=== PATIENT | male | born 1935 | race Two or more races ===

== ENCOUNTER 2017-05-27 14:06 | Inpatient (IN) | payer MEDICARE, MEDICAID ==
[~2017-05-27] VITALS: Ht 157.5 cm; Wt 53.6 kg
--- NOTE | 2017-05-27 14:10 | NUR ---
[facility] CTR FOR ABD DISTENTION. SENT BY DR CAMPBELL TO GET A PARACENTESIS PROCEDURE. PATIENT A/OX 3. BREATHING EVEN AND UNLABORED. NO SOB. VITALS STABLE. SAFETY AND COMFORT MEASURES IN PLACE. AWAITING MD ORDERS.
--- NOTE | 2017-05-27 14:18 | NUR ---
NEW IV STARTED ON LAC, 20 G. BLOOD DRAWN AND SENT TO LAB.
[2017-05-27 14:24] LABS: BASOPHILS % (AUTO) 0.4 % (0.0-2.0); EOSINOPHILS % (AUTO) 0.7 % (0.0-6.0); HEMATOCRIT 36 % (39-51); HEMOGLOBIN 12.2 g/dL (13.5-17.5); LYMPHOCYTES # (AUTO) 0.6 /CMM (0.8-4.8); MEAN CORPUSCULAR HEMOGLOBIN 32 PG (26.0-33.0); MEAN CORPUSCULAR HGB CONC 34 g/dl (31.0-36.0); MEAN CORPUSCULAR VOLUME 92 fL (80-96); MONOCYTES # (AUTO) 0.5 /CMM (0.1-1.30); MONOCYTES % (AUTO) 8.3 % (2.0-12.0); NEUTROPHILS # (AUTO) 5.3 /CMM (1.8-8.9); NEUTROPHILS % (AUTO) 80.6 % (43.0-81.0); PLATELET COUNT (AUTO) 301 /CMM (150-450); RDW COEFFICIENT OF VARIATION 15.5 (11.5-15.0); RED BLOOD CELL COUNT(AUTO) 3.87 MIL/uL (4.5-6.0); WHITE BLOOD COUNT (AUTO) 6.4 K/uL (4.3-11.0)
[2017-05-27] MEDS ORDERED: ASCO500T9 PO (14:25)
[2017-05-27] MEDS ORDERED: ONDA4TAB5 PO (14:25)
[2017-05-27] MEDS ORDERED: FURO40TA5 PO (14:25)
[2017-05-27] MEDS ORDERED: ISOS30TA6 PO (14:25)
[2017-05-27] MEDS ORDERED: ENOX40DI SQ (14:25)
[2017-05-27] MEDS ORDERED: METF500T4 PO (14:25)
[2017-05-27] MEDS ORDERED: CARV6.252 PO (14:25)
[2017-05-27] MEDS ORDERED: PROP10TA10 PO (14:25)
[2017-05-27] MEDS ORDERED: FOLI1TAB16 PO (14:25)
[2017-05-27] MEDS ORDERED: ASPI-1169 PO (14:25)
[2017-05-27] MEDS ORDERED: MULT-213 PO (14:25)
[2017-05-27] MEDS ORDERED: TRAM50TA2 PO (14:25)
[2017-05-27] MEDS ORDERED: GLIP5TAB13 PO (14:25)
[2017-05-27] MEDS ORDERED: ACET-2605 PO (14:25)
[2017-05-27 14:34] LABS: CALCIUM, SERUM 8.2 mg/dL (8.5-10.1); CARBON DIOXIDE 26 mmol/L (21-32); CHLORIDE 99 mmol/L (98-107); CREATININE 1.4 mg/dL (0.6-1.3); GLUCOSE 198 mg/dL (74-106); POTASSIUM 3.9 mmol/L (3.5-5.1); SODIUM SERUM 131 mmol/L (136-145); UREA NITROGEN, BLOOD 45 mg/dL (7-18)
[2017-05-27 14:38] LABS: INR 1.13 (0.85-1.15)
[2017-05-27 14:40] LABS: ALANINE AMINOTRANSFERASE 14 U/L (12-78); ALKALINE PHOSPHATASE 89 U/L (46-116); ASPARTATE AMINOTRANSFERASE 27 U/L (15-37); BILIRUBIN,DIRECT 0.4 mg/dL (0.0-0.2); LIPASE 286 U/L (73-393); TOTAL PROTEIN, SERUM 7.4 g/dL (6.4-8.2)
--- NOTE | 2017-05-27 14:42 | NUR ---
AWAITING LABS IN ORDER TO PROCEED WITH PARACENTESIS
--- NOTE | 2017-05-27 14:54 | NUR ---
PER DEBORAH TIN FLOPPER PATIENT IS CURRENTLY TAKING LOVENOX. INFORMED ER LOVENOX MUST BE HELD FOR 12 HOURS PRIOR TO US GUIDED PARACENTESIS
--- NOTE | 2017-05-27 15:30 | NUR ---
PATIENT TAKEN TO CT VIA STRETCHER.
--- NOTE | 2017-05-27 16:28 | NUR ---
REPORT GIVEN TO SEAN ANDERSON FOR DIANA UPON ADMISSION.
[2017-05-27 17:00] VITALS: BP 94/53
[2017-05-27] MEDS ORDERED: ONDANSETRON HCL/PF 4 MG/2 ML VIAL IVP PRN (17:00)
[2017-05-27] MEDS ORDERED: MAGNESIUM HYDROXIDE 30 ML UDC PO PRN (17:00)
[2017-05-27] MEDS: CARVEDILOL 6.25 MG TABLET PO SCH (17:00)
[2017-05-27] MEDS ORDERED: HYDROCODONE/APAP 5/325MG 1 EACH TABLET PO PRN (17:00)
[2017-05-27] MEDS ORDERED: MAG HYDROX/AL HYDROX/SIMETH 30 ML UDC PO PRN (17:00)
[2017-05-27] MEDS ORDERED: ACETAMINOPHEN 325 MG TABLET PO PRN (17:00)
[2017-05-27] MEDS ORDERED: Z GUARD REMEDY 2 OZ OINT TP PRN (17:00)
--- NOTE | 2017-05-27 17:00 | NUR ---
television directorcane burner notes Admitted a 82 years old male patient who came in due to for paracentesis and complaint of abdominal pain. Patient is under the medical service of Elvis Burnette NP on site and seen the patient and ordered put it on patient's profile. Skin assessment done and pictures taken and filed in the chart. IV intact and patent. Kept patient clean and comfortable in bed, call light with in patient reach, will continue to monitor accordingly.
--- NOTE | 2017-05-27 17:01 | NUR ---
PATIENT TRANSPORTED TO [facility] VIA ACLS PROTOCOL. SEAN ANDERSON TO PROVIDE DIANA.
[2017-05-27] MEDS: ENOXAPARIN SODIUM 30 MG/0.3 ML DISP.SYRIN SQ SCH (17:12)
--- NOTE | 2017-05-27 19:10 | NUR ---
TELE/RN NOTES RECEIVED PT. LYING IN BED. AWAKE, ALERT AND ORIENTED X 2. BREATHING EVEN AND UNLABORED ON ROOM AIR. NO SOB, RESPIRATORY DISTRESS OR COMPLAINTS OF PAIN NOTED AT THIS TIME. PT. WITH EXTERNAL SENIOR C SOFTWARE ENGINEER PRESENT AND INTACT. CURRENT RHYTHM = SINUS RHYTHM HR 64. PT. WITH LEFT AC 20 GAUGE PERIPHERAL IV PRESENT, PATENT AND INTACT ADMINISTERING TO PT. NS @ 50 ML/HR. PER DAYSHIFT NURSE PT. WILL BE NPO AFTER MIDNIGHT PENDING US GUIDED PARACENTESIS. BED LOCKED AND IN LOWEST POSITION, SIDE RAILS UP X3, BED ALARM ON, CALL LIGHT WITHIN REACH, WILL CONTINUE TO MONITOR.
[2017-05-27] MEDS: IV NS 0.9% 1,000 ML IV PRN (19:11)
--- NOTE | 2017-05-27 19:16 | NUR ---
rn closing notes All needs provided, attended, and anticipated. Kept patient clean and comfortable in bed, call light with in patient reach, endorsed to next shift RN to continue care. Addendum: 05/27/17 at 1916 by SEAN MOORE tele patient on tele monitor SR heart rate of 85
[2017-05-27 20:20] VITALS: BP 99/69
[2017-05-27] MEDS: PROPRANOLOL HCL 10 MG TABLET PO SCH (21:00)
[2017-05-27 23:57] VITALS: BP 112/72
[2017-05-28] MEDS: PANTOPRAZOLE 40 MG VIAL IV SCH (01:20)
[2017-05-28 04:43] VITALS: BP 112/76
--- NOTE | 2017-05-28 07:05 | NUR ---
TELE/RN NOTES PT. IS LYING IN BED RESTING. BREATHING EVEN AND UNLABORED ON ROOM AIR. NO SOB, RESPIRATORY DISTRESS OR COMPLAINTS OF PAIN NOTED AT THIS TIME. PT. WITH EXTERNAL SOCIAL INSURANCE ANALYST PRESENT AND INTACT. CURRENT RHYTHM = SINUS RHYTHM WITH PAC'S HR 89. PT. WITH LEFT AC 20 GAUGE IV PRESENT, PATENT AND INTACT.PT. REFUSING IV FLUIDS AT THIS TIME. EDUCATE PT. ON IMPORTANCE OF IV HYDRATION. PT. STATED HE DOES NOT WANT IT AND WANTS TO BE LEFT ALONE. ALL PT. NEEDS MET. BED LOCKED AND IN LOWEST POSITION, SIDE RAILS UP X3, BED ALARM ON, CALL LIGHT WITHIN REACH, WILL ENDORSE TO DAYSHIFT NURSE FOR CONTINUITY OF CARE.
--- NOTE | 2017-05-28 08:30 | NUR ---
SPOKE TO [facility]TA[facility] FOR PT. PARACENTESIS CONSENT SIGNED.
[2017-05-28] MEDS: CARVEDILOL 6.25 MG TABLET PO SCH ×2 (09:00→17:00)
[2017-05-28] MEDS: glipiZIDE 5 MG TABLET PO SCH (09:00)
[2017-05-28] MEDS: ISOSORBIDE MONONITRATE (30MG) 30 MG TAB.SR.24H PO SCH (09:00)
[2017-05-28] MEDS: ASCORBIC ACID 500 MG TABLET PO SCH (09:00)
[2017-05-28] MEDS: PROPRANOLOL HCL 10 MG TABLET PO SCH ×2 (09:00→21:00)
[2017-05-28] MEDS: ASPIRIN 81 MG TAB.CHEW PO SCH (09:00)
[2017-05-28] MEDS: MULTIVIT, IRON, MIN NO. 8, FA 1 TAB PO SCH (09:00)
[2017-05-28] MEDS: FOLIC ACID 1 MG TABLET PO SCH (09:00)
--- NOTE | 2017-05-28 10:38 | NUR ---
PT. REFUSING PARACENTESIS,AM LABS,MEDS AND MONICA DOE INFORMED DR. WELCH.STATES HE WILL TALK TO PT.
--- NOTE | 2017-05-28 10:51 | NUR ---
WOUND CARE CONSULT: PT FOLLOWED BY SURGICAL TEAM. DEFER TO SURGICAL TEAM FOR WOUND/SKIN TREATMENT PLAN. DISCUSSED SKIN PROTECTION WITH NURSING STAFF. ALL SKIN PROTECTION MEASURES IN PLACE. PT ON JOSE ISOFLEX LOW AIRLOSS BED. PT IS UNCOOPERATIVE PER NURSING STAFF. MD IN AGREEMENT WITH PLAN OF CARE.
[2017-05-28 11:54] LABS: BASOPHILS % (AUTO) 0.3 % (0.0-2.0); EOSINOPHILS % (AUTO) 0.6 % (0.0-6.0); HEMATOCRIT 32 % (39-51); HEMOGLOBIN 11.1 g/dL (13.5-17.5); LYMPHOCYTES # (AUTO) 0.6 /CMM (0.8-4.8); LYMPHOCYTES % (AUTO) 10.3 % (20.0-44.0); MEAN CORPUSCULAR HEMOGLOBIN 32 PG (26.0-33.0); MEAN CORPUSCULAR HGB CONC 35 g/dl (31.0-36.0); MEAN CORPUSCULAR VOLUME 93 fL (80-96); MONOCYTES # (AUTO) 0.6 /CMM (0.1-1.30); NEUTROPHILS % (AUTO) 79.8 % (43.0-81.0); PLATELET COUNT (AUTO) 274 /CMM (150-450); RDW COEFFICIENT OF VARIATION 16.5 (11.5-15.0); RED BLOOD CELL COUNT(AUTO) 3.44 MIL/uL (4.5-6.0); WHITE BLOOD COUNT (AUTO) 6.3 K/uL (4.3-11.0)
[2017-05-28 12:00] VITALS: BP 96/69
[2017-05-28 12:12] LABS: ALANINE AMINOTRANSFERASE 16 U/L (12-78); ALKALINE PHOSPHATASE 83 U/L (46-116); ASPARTATE AMINOTRANSFERASE 34 U/L (15-37); BILIRUBIN,TOTAL 1.2 mg/dL (0.2-1.0); CALCIUM, SERUM 8.3 mg/dL (8.5-10.1); CARBON DIOXIDE 23 mmol/L (21-32); CHLORIDE 103 mmol/L (98-107); CREATININE 1.2 mg/dL (0.6-1.3); GLUCOSE 96 mg/dL (74-106); MAGNESIUM 1.7 mg/dL (1.8-2.4); PHOSPHORUS 2.5 mg/dL (2.5-4.9); POTASSIUM 3.5 mmol/L (3.5-5.1); SODIUM SERUM 136 mmol/L (136-145); UREA NITROGEN, BLOOD 40 mg/dL (7-18)
[2017-05-28 12:17] LABS: CHOLESTEROL 109 mg/dL (<200); HDL CHOLESTEROL 35 mg/dL (40-60); LDL 68 mg/dL (0-99); THYROID STIMULATING HORMONE 8.496 uIU/mL (0.358-3.74); TRIGLYCERIDES 79 mg/dL (30-150)
[2017-05-28 16:00] VITALS: BP 93/58
[2017-05-28] MEDS: HYDROGEL DRESSING 90 GM TUBE TP SCH ×2 (17:35→22:00)
[2017-05-28] MEDS: MUPIROCIN OINT 2% 22 GM TUBE SCH ×2 (17:35→21:00)
--- NOTE | 2017-05-28 17:46 | NUR ---
PT WENT ALONG WITH CT SCAN OF ABD. AND PARACENTESIS,BUT NOW REFUSING WOUND ASSESSMENT AND BACTROBAN.INSTRUCTED ON IMPORTANCE.NO MEASUREMENTS OF BACK AND SACRAL WDS. PT. REFUSING.
--- NOTE | 2017-05-28 18:00 | NUR ---
PARACENTESIS FLUID TAKEN TO LAB WITH LABELING.PT. 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
--- NOTE | 2017-05-28 19:30 | NUR ---
RN Initial Notes Received pt laying in bed with HOB elevated. A/o x2, afebrile. Respirations are even and unlabored, not in any acute distress noted. Denies any pain at this time. IV to LAC intact, no infiltration noted. Dressing kept clean and dry. Safety measures in place. Instructed pt to use call light when assistance is needed, call light is left within reach. Will continue to monitor throughout shift.
--- NOTE | 2017-05-28 19:40 | NUR ---
RN Notes IV fluids was disconnected. Informed the pt that IV fluids has been ordered and needs to be connected. Pt refused. Explained to the pt the benefits and risks of fluids, pt still noted with refusal. Honored pt's dignity and the right to refuse. Will continue to monitor for any changes.
[2017-05-28 20:00] VITALS: BP 103/68
[2017-05-28] MEDS: ENOXAPARIN SODIUM 30 MG/0.3 ML DISP.SYRIN SQ SCH (21:00)
--- NOTE | 2017-05-28 21:39 | NUR ---
RN Notes 2109 Explained to the pt re: his scheduled medications and treatments. Pt noted with refusal. Explained the risks and benefits x2, still noted with refusal. 2134 Explained to the pt again re: the importance of the scheduled medications and treatments: Inderal, Lovenox, bactroban and curasol gel. Pt stated "just leave me alone. I don't need anything." Provided comfort measures and stated to the pt that "we are here to help you get better and stronger." Pt still refused. Will continue to monitor pt throughout shift. Reminded pt to use call light when assistance is needed, call light is left within reach.
--- NOTE | 2017-05-28 21:47 | NUR ---
RN Notes Pt refused wound treatment to be done. Explained the need to change dressing. Pt stated, "I don't want it changed." Will continue to monitor dressing and note any significant changes. Addendum: 05/28/17 at 2150 by MALDONADO ANDRADE RN Amended: Links added.
[2017-05-29] VITALS: BP 117/70
[2017-05-29] MEDS: PANTOPRAZOLE 40 MG VIAL IV SCH ×2 (00:09→22:47)
[2017-05-29] MEDS: IV NS 0.9% 1,000 ML IV PRN (00:09)
--- NOTE | 2017-05-29 00:10 | NUR ---
RN Notes Pt was okay for IV fluids to be administered at NS 50ml/hr, as well as protonix. IV to LAC intact, no infiltration noted. Dressing kept clean and dry. Pt able to tolerate well.
--- NOTE | 2017-05-29 01:00 | NUR ---
RN Notes Attempted to collect urine specimen using a urinal. Pt stated he is not able to urinate at this time. Diaper is also dry. Will continue to monitor and try to collet urine. Pt made aware. Instructed pt to use call light when assistance is needed and if needed to urinate. Pt stated "ill try." Pt able to perform return demonstration of call light button.
[2017-05-29 04:00] VITALS: BP 98/61
--- NOTE | 2017-05-29 06:33 | NUR ---
RN Notes Attempted x2 to collect urine. Pt stated he cannot pee at the moment and brief is dry. Pt refuses for insertion of straight cath or rodriguez. Explained the need to collect urine sample. Per pt, "I will let you know when i need to pee." Bladder is soft and nondistended, denies any bladder discomfort upon palpation. Encouraged pt to drink fluids as tolerated, IV fluids running NS @50ml/hr. Reminded pt to use call light when assistance is needed and the need to urinate. Pt verbalized understanding.
--- NOTE | 2017-05-29 06:35 | NUR ---
RN Closing Notes Needs met and rendered. Remains a/o x2, remains afebrile. Respirations are even and unlabored, not in any acute distress noted. Educated pt on medications, with some confusion and needs reinforcement. IV to LAC intact and patent, no infiltration noted. Dressing kept clean and dry. Denies any pain, SOB, n/v. Assisted pt with EDUCATOR SENIOR CLINICAL to reposition throughout shift and offloaded bony prominences to prevent further skin injuries. Safety measures in place. Instructed pt to use call light when assistance is needed, call light is left within reach. Will endorse to next shift for continuity of care.
[2017-05-29 08:00] VITALS: BP 91/61
--- NOTE | 2017-05-29 08:00 | NUR ---
RN NOTES RECEIVED PATIENT IN THE BED. TELE SR-76, A/O X2/3, PATIENT HAS NO RESPIRATORY DISTRESS, REFUSED TO ANSWER QUESTION, IRRITABLE EASILY, NEEDY, V/S TAKEN AND FOLLOWED , IV LINE ON LEFT AC AREA INTACT INFUSING NS AT 50 ML/HR, PATIENT SELECTIVE WITH MEDICATION, MULTIPLE PROMOTES FOR MEDICATION INTACT, ASSIST TURN AND REPOSITION Q 2 HR, PATIENT USING URINAL, CALL LIGHT WITHIN TO REACH, PATIENT ON ISOLATION OF MRSA OF NARES, NEEDS ATTENDED A DN ANTICIPATED, CALL LIGHT WITHIN TO REACH, CONTINUED MONITORING.
[2017-05-29] MEDS: ISOSORBIDE MONONITRATE (30MG) 30 MG TAB.SR.24H PO SCH (09:00)
[2017-05-29] MEDS: PROPRANOLOL HCL 10 MG TABLET PO SCH ×2 (09:00→21:00)
[2017-05-29] MEDS: CARVEDILOL 6.25 MG TABLET PO SCH ×2 (09:00→17:00)
[2017-05-29] MEDS: MULTIVIT, IRON, MIN NO. 8, FA 1 TAB PO SCH (09:56)
[2017-05-29] MEDS: ASCORBIC ACID 500 MG TABLET PO SCH (09:56)
[2017-05-29] MEDS: FOLIC ACID 1 MG TABLET PO SCH (09:56)
[2017-05-29] MEDS: ASPIRIN 81 MG TAB.CHEW PO SCH (09:56)
[2017-05-29] MEDS: glipiZIDE 5 MG TABLET PO SCH (09:57)
[2017-05-29] MEDS: HYDROGEL DRESSING 90 GM TUBE TP SCH ×2 (09:58→21:16)
[2017-05-29] MEDS: MUPIROCIN OINT 2% 22 GM TUBE SCH ×2 (09:59→21:03)
--- NOTE | 2017-05-29 10:00 | NUR ---
RN NOTES BP -91/65, P- 76, HOLD BP MEDICATION , ANSELMO COY AWARE OF. CONTINUED MONITORING.
--- NOTE | 2017-05-29 12:00 | NUR ---
RN NOTES PATIENT RESTING IN THE BED AT HIS TIME, PATIENT CONTACT ISOLATION, PATIENT HAS NO C/O PAIN AT THIS TIME, NEEDS ATTENDED AND ANTICIPATED. CALL LIGHT WITHIN TO REACH,CONTINUED MONITORING.
[2017-05-29 15:31] LABS: APPEARANCE,URINE SL CLOUDY (CLEAR); BILIRUBIN,URINE NEGATIVE (NEGATIVE); BLOOD, URINE NEGATIVE Ery/uL (NEGATIVE); COLOR,URINE YELLOW (YELLOW); KETONES,URINE NEGATIVE (NEGATIVE); LEUKOCYTE ESTERASE ,URINE TRACE (NEGATIVE); NITRITE, URINE NEGATIVE (NEGATIVE); PH,URINE 5.5 (5.0-8.0); PROTEIN,URINE TRACE mg/dl (NEGATIVE); UGLUCOSE NEGATIVE (NEGATIVE)
[2017-05-29 15:33] LABS: BACTERIA,URINE Few /HPF (None Seen); RBC,URINE 0-2 /HPF (0-2); SQUAMOUS EPITHELIAL CELL,UR Few /HPF (None Seen)
[2017-05-29 16:00] VITALS: BP 104/74
--- NOTE | 2017-05-29 17:00 | NUR ---
RN NOTES V/S TAKEN BP 104/74, P-93, HELD BP MEDICATION, INFUSING NS AT 50 ML/HR, INTACT, PATIENT CALM AT THIS TIME, NO RESPIRATORY DISTRESS, NEEDS ATTENDED AND ANTICIPATED, PATIENT EATING DINNER AT THIS TIME, CALL LIGHT WITHIN TO [facility], NO C/O PAIN. CONTINUED MONITORING.
--- NOTE | 2017-05-29 18:40 | NUR ---
RN NOTES PATIENT STABLE, NO ACUTE RESPIRATORY DISTRESS AT THIS TIME, ASSIST TURN AND REPOSITION Q 2 HR. CALL LIGHT WITHIN TO REACH. ENDORSED ONCOMING NURSE FOR DIANA.
--- NOTE | 2017-05-29 19:32 | NUR ---
RN OPENING NOTES PATIENT IS IN BED, ALERT AND ORIENTED X2/3. VS STABLE. NO PAIN OR DISCOMFORT NOTED AT THIS TIME. RESPIRATIONS EVEN AND UNLABORED. NO SOB NOTED. PATIENT IS IRRITABLE TO ANSWER THE QUESTIONS. IV ACCESS ON LEFT AC AREA PATENT AND INTACT, INFUSING NS AT 50 ML/HR. PATIENT ON ISOLATION OF MRSA OF NARES. BED IN LOW AND LOCKED POSITION, SIDE RAILSX2. CALL LIGHT WITHIN EASY REACH. WILL CONTINUE TO MONITOR AND ASSESS DURING THE SHIFT.
[2017-05-29 20:00] VITALS: BP 108/59
[2017-05-29] MEDS: ENOXAPARIN SODIUM 30 MG/0.3 ML DISP.SYRIN SQ SCH (21:00)
--- NOTE | 2017-05-29 22:00 | NUR ---
RN NOTES PATIENT REFUSED TO TAKE INDERAL
--- NOTE | 2017-05-29 22:32 | NUR ---
RN NOTES PATIENT IS HAVING SURGICAL PROCEDURE. [facility] CALLED TO HOLD LOVENOX. LOVENOX HELD NOW.
--- NOTE | 2017-05-30 07:10 | NUR ---
RN OPENING NOTES RECEIVED PT. IN BED A&OX2-3, PERIODS OF FORGETFULNESS. BREATHING UNLABORED, AND EVENLY ON OXYGEN AT 3L/MIN VIA NASAL CANNULA. NO S/S OF ACUTE DISTRESS. IV FLUIDS AT BEDSIDE. BED IS IN LOWEST, AND LOCKED POSITION, 2 SIDE RAILS UP, AND INSTRUCTED PT. TO USE CALL LIGHT FOR ASSISTANCE. ALL NEEDS MET. WILL CONTINUE TO ASSESS AND MONITOR. Addendum: 05/30/17 at 0816 by MAYRA ISRAEL RN NOTE ABOVE IS FOR WRONG PATIENT.
--- NOTE | 2017-05-30 07:30 | NUR ---
RN OPENING NOTES RECEIVED PT. IN BED A&OX1, PATIENT OPENED EYES SPONTANEOUSLY TO HIS NAME. BREATHING UNLABORED, AND EVENLY ON ROOM AIR. NO S/S OF ACUTE DISTRESS. IV FLUIDS AT BEDSIDE RUNNING AT 50 ML/HR. BED IS IN LOWEST, AND LOCKED POSITION, 2 SIDE RAILS UP, AND CALL LIGHT IS WITHIN REACH. ALL NEEDS MET. WILL CONTINUE TO ASSESS AND MONITOR.
--- NOTE | 2017-05-30 07:30 | NUR ---
RN CLOSING NOTES PATIENT IS SLEEPING IN BED, ALERT AND ORIENTED X2/3. VS STABLE. NO PAIN OR DISCOMFORT NOTED AT THIS TIME. RESPIRATIONS EVEN AND UNLABORED. NO SOB NOTED. PATIENT IS IRRITABLE TO ANSWER THE QUESTIONS. IV ACCESS ON LEFT AC AREA PATENT AND INTACT, INFUSING NS AT 50 ML/HR. ON ISOLATION OF MRSA OF NARES. PATIENT IS NPO SINCE MIDNIGHT DUE TO SURGICAL PROCEDURE. CONSENT SINGED. BED IN LOW AND LOCKED POSITION, SIDE RAILSX2. CALL LIGHT WITHIN EASY REACH. WILL ENDORSE TO RN DAY SHIFT FOR DIANA.
--- NOTE | 2017-05-30 07:31 | NUR ---
RN NOTES PT. HAS BEEN NPO SINCE MIDNIGHT AWAITING FOR A WOUND DEBRIDEMENT PROCEDURE TODAY.
--- NOTE | 2017-05-30 08:00 | NUR ---
RN NOTES PT. REFUSED HAVING VITAL SIGNS TAKEN.
[2017-05-30] MEDS: MULTIVIT, IRON, MIN NO. 8, FA 1 TAB PO SCH (09:00)
[2017-05-30] MEDS: glipiZIDE 5 MG TABLET PO SCH (09:00)
[2017-05-30] MEDS: ISOSORBIDE MONONITRATE (30MG) 30 MG TAB.SR.24H PO SCH (09:00)
[2017-05-30] MEDS: PROPRANOLOL HCL 10 MG TABLET PO SCH ×2 (09:00→21:00)
[2017-05-30] MEDS: ASCORBIC ACID 500 MG TABLET PO SCH (09:00)
[2017-05-30] MEDS: CARVEDILOL 6.25 MG TABLET PO SCH ×2 (09:00→17:00)
[2017-05-30] MEDS: FOLIC ACID 1 MG TABLET PO SCH (09:00)
[2017-05-30 09:40] VITALS: BP 97/61
--- NOTE | 2017-05-30 10:33 | NUR ---
RN NOTES GLUCOTROL WAS HELD DUE TO PT. WAS NPO AFTER MIDNIGHT, MD AWARE MEDICATION WAS HELD. IMDUR, AND COREG WAS HELD DUE TO PT.'S DECREASED BLOOD PRESSURE, MD AWARE MEDICATIONS WERE HELD.
--- NOTE | 2017-05-30 10:36 | NUR ---
RN NOTES INDREL WAS HELD DUE TO PT.'S DECREASED BLOOD PRESSURE, IS AWARE.
[2017-05-30] MEDS: MUPIROCIN OINT 2% 22 GM TUBE SCH ×2 (10:48→21:35)
[2017-05-30] MEDS: HYDROGEL DRESSING 90 GM TUBE TP SCH ×2 (10:49→21:35)
[2017-05-30] MEDS: ASPIRIN 81 MG TAB.CHEW PO SCH (10:49)
--- NOTE | 2017-05-30 10:59 | NUR ---
RN NOTES PT. HAS POOR APPETITE, AND HAD BEEN REFUSING TO EAT BREAKFAST. PT. WAS OFFERED JELLO AND PUDDING, AND AGREED TO EATING JELLO.
[2017-05-30 16:00] VITALS: BP 101/71
[2017-05-30] MEDS: RIVAROXABAN 15 MG TABLET PO SCH (16:56)
--- NOTE | 2017-05-30 19:30 | NUR ---
RN OPEN NOTES RECEIVED PATIENT AWAKE IN BED. A/OX2. NO SIGNS OF DISTRESS OR DISCOMFORT. BREATHING EVEN AND UNLABORED. PATIENT ABD IS DISTENDED BUT SOFT AND NON-TENDER WITH ACTIVE BOWEL SOUNDS. IV ACCESS IN LAC WITH NS INFUSING, PATENT AND INTACT, NO SIGNS OF REDNESS OR INFILTRATION. BED IN LOW LOCKED POSITION WITH SIDE RAILS X2. CALL LIGHT WITHIN REACH. WILL CONTINUE TO MONITOR.
--- NOTE | 2017-05-30 19:45 | NUR ---
RN CLOSING NOTES PT. IS IN BED A&OX2, CONFUSED TO TIME. BREATHING UNLABORED, AND EVENLY ON ROOM AIR. NO S/S OF ACUTE DISTRESS. IV FLUIDS AT BEDSIDE RUNNING AT 50 ML/HR. BED IS IN LOWEST, AND LOCKED POSITION, 2 SIDE RAILS UP, AND CALL LIGHT IS WITHIN REACH. ALL NEEDS MET. WILL ENDORSE REPORT TO NURSE.
[2017-05-30] MEDS ORDERED: METOPROLOL TARTRATE 25 MG TABLET PO ONE (19:52)
[2017-05-30 20:00] VITALS: BP 111/73
[2017-05-30] MEDS ORDERED: NITROGLYCERIN 0.4 MG/TAB BOTTLE SL PRN (20:00)
[2017-05-30] MEDS ORDERED: MORPHINE SULFATE INJ 2 MG/ML DISP.SYRIN IV PRN (20:00)
--- NOTE | 2017-05-30 21:00 | NUR ---
RN NOTES PATIENT REFUSED INDERAL 10MG ADMINISTRATION X3. PATIENT EDUCATION REGARDING RISK AND BENEFITS REINFORCED. WILL CONTINUE TO MONITOR.
[2017-05-30 21:30] VITALS: BP 148/74
[2017-05-30] MEDS: PANTOPRAZOLE 40 MG VIAL IV SCH (23:30)
--- NOTE | 2017-05-30 23:30 | NUR ---
RN NOTES PATIENT REFUSED PROTONIX IV 40MG ADMINISTRATION X3. PATIENT STATES "I DON'T WANT ANYTHING".PATIENT EDUCATION REGARDING RISK AND BENEFITS REINFORCED. WILL CONTINUE TO MONITOR.
[2017-05-30] MEDS: IV NS 0.9% 1,000 ML IV PRN (23:56)
--- NOTE | 2017-05-31 06:43 | NUR ---
RN CLOSING NOTES PATIENT RESTING IN BED, EASILY AROUSABLE. A/OX2. NO SIGNS OF DISTRESS OR DISCOMFORT. BREATHING EVEN AND UNLABORED. IV ACCESS IN LAC WITH NS INFUSING, PATENT AND INTACT, NO SIGNS OF REDNESS OR INFILTRATION. ALL NEEDS MET. NO SIGNIFICANT CHANGES THROUGH THE NIGHT. REPOSITIONED Q2H. PATIENT KEPT CLEAN DRY AND COMFORTABLE. BED IN LOW LOCKED POSITION WITH SIDE RAILS X2. CALL LIGHT WITHIN REACH. WILL ENDORSE TO AM SHIFT FOR DIANA.
--- NOTE | 2017-05-31 07:30 | NUR ---
RN OPENING NOTES RECEIVED PT. IN BED A&OX2. NO S/S OF ACUTE DISTRESS. BREATHING EVEN AND UNLABORED ON ROOM AIR. IV FLUIDS RUNNING AT 50 ML/HR. BED IS IN LOW LOCKED POSITION WITH SIDE RAILS UP X2. CALL LIGHT WITHIN REACH. WILL CONTINUE TO ASSESS AND MONITOR.
[2017-05-31 08:00] VITALS: BP 119/82
--- NOTE | 2017-05-31 08:00 | NUR ---
RN NOTES PT. REFUSED GETTING LABS DRAWN. EXPLAINED TO PT. THE REASON FOR HIS LABS BEING DRAWN TODAY, AND PT. CONTINUED TO REFUSE. WAS NOTIFIED ABOUT PT. REFUSING HIS BLOOD BEING DRAWN FOR TODAY'S LAB ORDERS.
[2017-05-31] MEDS: MULTIVIT, IRON, MIN NO. 8, FA 1 TAB PO SCH (09:00)
[2017-05-31] MEDS: MUPIROCIN OINT 2% 22 GM TUBE SCH ×2 (09:00→21:35)
[2017-05-31] MEDS: ISOSORBIDE MONONITRATE (30MG) 30 MG TAB.SR.24H PO SCH (09:00)
[2017-05-31] MEDS: PROPRANOLOL HCL 10 MG TABLET PO SCH ×2 (09:00→21:36)
[2017-05-31] MEDS: glipiZIDE 5 MG TABLET PO SCH (09:00)
[2017-05-31] MEDS: ASCORBIC ACID 500 MG TABLET PO SCH (09:00)
[2017-05-31] MEDS: ASPIRIN 81 MG TAB.CHEW PO SCH (09:00)
[2017-05-31] MEDS: FOLIC ACID 1 MG TABLET PO SCH (09:00)
[2017-05-31] MEDS: CARVEDILOL 6.25 MG TABLET PO SCH ×2 (09:00→17:00)
[2017-05-31] MEDS: LEVOTHYROXINE SODIUM 50 MCG TABLET PO SCH (09:30)
[2017-05-31] MEDS: HYDROGEL DRESSING 90 GM TUBE TP SCH ×2 (10:00→21:35)
[2017-05-31] MEDS: RIVAROXABAN 15 MG TABLET PO SCH ×2 (10:03→17:00)
[2017-05-31 16:00] VITALS: BP 98/69
--- NOTE | 2017-05-31 16:30 | NUR ---
RN NOTES PT. WAS PLACED ON A [employer] MATTRESS. WOUND CARE TREATMENT PERFORMED PER RECOMMENDATIONS. PT. TOLERATED PROCEDURE WELL.
--- NOTE | 2017-05-31 19:30 | NUR ---
RN CLOSING NOTES PT. IN BED A&OX2-3. NO S/S OF ACUTE DISTRESS. BREATHING EVEN AND UNLABORED ON ROOM AIR. IV FLUIDS RUNNING AT 50 ML/HR. PT. HAD POOR DIET INTAKE THROUGHOUT THE DAY. PT. WAS NON COMPLAINT WITH MEDICATION REGIMEN, AND MD IS AWARE. PT. RECEIVED WOUND CARE TREATMENT AT BEDSIDE, AND TOLERATED PROCEDURE WELL. BED IS IN LOW LOCKED POSITION WITH SIDE RAILS UP X2. CALL LIGHT WITHIN REACH. WILL ENDORSE REPORT TO NURSE.
--- NOTE | 2017-05-31 19:41 | NUR ---
RN INITIAL NOTES RECEIVED PT LAYING IN BED WITH HOB ELEVATED. AWAKE AND RESPONSIVE, RESPIRATIONS ARE EVEN AND UNLABORED, NOT IN ANY ACUTE DISTRESS NOTED. NO C/O SOB, CHEST PAIN, N/V. IV TO LAC INTACT, PATENT. DRESSING KEPT CLEAN AND DRY. DENIES ANY PAIN AT THIS TIME. SAFETY MEASURES IN PLACE. INSTRUCTED PT TO USE CALL LIGHT WHEN ASSISTANCE IS NEEDED, CALL LIGHT IS LEFT WITHIN REACH. WILL CONTINUE TO MONITOR THROUGHOUT SHIFT.
[2017-05-31 20:00] VITALS: BP 117/73
[2017-06-01] MEDS: PANTOPRAZOLE 40 MG VIAL IV SCH (00:38)
[2017-06-01] MEDS: IV NS 0.9% 1,000 ML IV PRN ×2 (00:38→20:57)
--- NOTE | 2017-06-01 01:34 | NUR ---
RN NOTES BLADDER SCAN DONE W/ RESULTS OF >999CC RETAINED. DR. BOSS MADE AWARE WITH ORDER TO INSERT CAUDE CATHETER.
--- NOTE | 2017-06-01 04:30 | NUR ---
RN NOTES BLADDER NOTED TO BE DISTENDED. CAUDE CATHETER INSERTED BY ER NURSE WITH CHARGE NURSE AT BEDSIDE. PT TOLERATED PROCEDURE WELL. URINE NOTED TO BE DARK YELLOW/RAYSA COLORED. OUTPUT AT THIS TIME IS 500CC. WILL CONTINUE TO MONITOR TOTAL OUTPUT.
--- NOTE | 2017-06-01 06:35 | NUR ---
RN CLOSING NOTES ALL DUE MEDS GIVEN, NEEDS MET AND ANTICIPATED. AWAKE AND RESPONSIVE. AFEBRILE, RESPIRATIONS ARE EVEN AND AND UNLABORED, NOT IN ANY ACUTE DISTRESS NOTED. DENIES ANY SOB, N/V, CHEST PAIN. TOTAL OUTPUT AT END OF SHIFT 450CC, RAYSA COLORED URINE. BLADDER STILL NOTED TO BE DISTENDED. IV TO LAC INTACT, NO INFILTRATION NOTED. DRESSING KEPT CLEAN AND DRY. SAFETY MEASURES IN PLACE. REPOSITIONED PT Q2H AND OFFLOADED BILATERAL HEELS AND BONY PROMINENCES. INSTRUCTED PT TO USE CALL LIGHT WHEN ASSISTANCE IS NEEDED, CALL LIGHT IS LEFT WITHIN REACH. WILL ENDORSE TO NEXT SHIFT FOR CONTINUITY OF CARE.
[2017-06-01] MEDS: LEVOTHYROXINE SODIUM 50 MCG TABLET PO SCH (07:30)
--- NOTE | 2017-06-01 07:30 | NUR ---
MS RN OPENING NOTES RECEIVED PATIENT IN STABLE CONDITION. PATIENT IS ALERT AND ORIENTED. IN NO APPARENT DISTRESS. BEDSIDE RAILS ARE UPX2. BED IS LOCKED AND LOWERED. CALL LIGHT IS WITHIN REACH. WILL CONTINUE TO MONITOR. Addendum: 06/01/17 at 0749 by JOSE MEJÍA RN MS RN OPENING NOTES RECEIVED PATIENT IN STABLE CONDITION. IN NO APPARENT DISTRESS. BEDSIDE RAILS ARE UPX2. BED IS LOCKED AND LOWERED. CALL LIGHT IS WITHIN REACH. WILL CONTINUE TO MONITOR.
[2017-06-01 08:00] VITALS: BP 113/69
[2017-06-01] MEDS: BOOST PLUS FOOD-CHOCLATE 237 ML BOX PO SCH ×2 (08:00→16:21)
--- NOTE | 2017-06-01 08:30 | NUR ---
PATIENT REFUSED ALL MORNING MEDICATION INCLUDING BLOOD PRESSURE MEDICATION, VITAMINS, THYROID, BACTROBAN, XARELTO. RISKS AND BENEFITS OF MEDICATION ADHERENCE WERE EXPLAINED TO THE PATIENT. PATIENT CONTINUES TO REFUSE SAYS "I AM DONE TALKING ABOUT IT." PATIENT STATES "I AM GOING TO SLEEP, I JUST WANT MY FOOD AND SODA THAT IS ALL."
[2017-06-01] MEDS: MUPIROCIN OINT 2% 22 GM TUBE SCH ×2 (08:37→20:56)
[2017-06-01] MEDS: glipiZIDE 5 MG TABLET PO SCH (08:37)
[2017-06-01] MEDS: CARVEDILOL 6.25 MG TABLET PO SCH ×2 (08:37→16:24)
[2017-06-01] MEDS: ASPIRIN 81 MG TAB.CHEW PO SCH (08:37)
[2017-06-01] MEDS: ISOSORBIDE MONONITRATE (30MG) 30 MG TAB.SR.24H PO SCH (08:37)
[2017-06-01] MEDS: FOLIC ACID 1 MG TABLET PO SCH (08:37)
[2017-06-01] MEDS: ASCORBIC ACID 500 MG TABLET PO SCH (08:38)
[2017-06-01] MEDS: PROPRANOLOL HCL 10 MG TABLET PO SCH ×2 (08:38→20:56)
[2017-06-01] MEDS: MULTIVIT, IRON, MIN NO. 8, FA 1 TAB PO SCH (08:38)
[2017-06-01] MEDS: RIVAROXABAN 15 MG TABLET PO SCH ×2 (08:38→16:24)
[2017-06-01] MEDS: HYDROGEL DRESSING 90 GM TUBE TP SCH ×2 (09:39→21:00)
[2017-06-01 16:00] VITALS: BP 110/64
--- NOTE | 2017-06-01 18:45 | NUR ---
MS RN CLOSING NOTES PATIENT IS ALERT AND ORIENTED AND RESTING IN BED IN NO APPARENT DISTRESS. BEDSIDE RAILS ARE UPX2. BED IS LOCKED AND LOWERED. CALL LIGHT IS WITHIN REACH. ALL NEEDS WERE MET. IV LINE IS PATENT AND INTACT. WILL ENDORSE CARE TO MASONRY INSPECTOR NURSE FOR DIANA.
--- NOTE | 2017-06-01 19:45 | NUR ---
RN INITIAL NOTES RECEIVED PT LAYING IN BED WITH HOB ELEVATED. AWAKE AND RESPONSIVE, RESPIRATIONS ARE EVEN AND UNLABORED, NOT IN ANY ACUTE DISTRESS NOTED. DENIES ANY CHEST PAIN, N/V, SOB. PERIPHERAL IV TO LAC INTACT, PATENT. DRESSING KEPT CLEAN AND DRY. NO INFILTRATION NOTED. SAFETY MEASURES IN PLACE. INSTRUCTED PT TO USE CALL LIGHT WHEN ASSISTANCE IS NEEDED, CALL LIGHT IS LEFT WITHIN REACH. WILL CONTINUE TO MONITOR THROUGHOUT SHIFT.
[2017-06-01 20:00] VITALS: BP 108/74
[2017-06-02] MEDS: PANTOPRAZOLE 40 MG VIAL IV SCH (00:16)
--- NOTE | 2017-06-02 06:00 | NUR ---
RN NOTES PT REFUSED AM LABS. EXPLAINED TO THE PT IMPORTANCE OF THE LAB DRAW. STILL NOTED WITH REFUSAL. WILL CONTINUE TO MONITOR.
--- NOTE | 2017-06-02 06:28 | NUR ---
RN CLOSING NOTE ALL DUE MEDS GIVEN, NEEDS MET AND ANTICIPATED. PT WAS COMPLIANT WITH MEDICATIONS AND DRESSING CHANGES. AWAKE AND RESPONSIVE. REMAINS AFEBRILE, RESPIRATIONS ARE EVEN AND AND UNLABORED, NOT IN ANY ACUTE DISTRESS NOTED. DENIES ANY SOB, N/V, CHEST PAIN. IV TO LAC INTACT, NO INFILTRATION NOTED. DRESSING KEPT CLEAN AND DRY. SAFETY MEASURES IN PLACE. REPOSITIONED PT Q2H AND OFFLOADED BILATERAL HEELS AND BONY PROMINENCES. INSTRUCTED PT TO USE CALL LIGHT WHEN ASSISTANCE IS NEEDED, CALL LIGHT IS LEFT WITHIN REACH. WILL ENDORSE TO NEXT SHIFT FOR CONTINUITY OF CARE.
--- NOTE | 2017-06-02 07:50 | NUR ---
m/s truck driving: notes pt pulled his iv out, bleeding able to stop by putting pressure with gauze. pt refused iv insertion when offered, stated, "i don't want it."
[2017-06-02 08:00] VITALS: BP 121/54
--- NOTE | 2017-06-02 08:00 | NUR ---
m/s blindstitch machine operator: initial assessment received pt in bed awake, a/ox2-3, but doesn't want to bothered at all period as stated. pt refused physical assessment including body check assessment. pt refused to eat his breakfast at this time.
[2017-06-02] MEDS: RIVAROXABAN 15 MG TABLET PO SCH (09:00)
[2017-06-02] MEDS: glipiZIDE 5 MG TABLET PO SCH (09:00)
[2017-06-02] MEDS: CARVEDILOL 6.25 MG TABLET PO SCH (09:00)
[2017-06-02] MEDS: MULTIVIT, IRON, MIN NO. 8, FA 1 TAB PO SCH (09:00)
[2017-06-02] MEDS: ISOSORBIDE MONONITRATE (30MG) 30 MG TAB.SR.24H PO SCH (09:00)
[2017-06-02] MEDS: ASPIRIN 81 MG TAB.CHEW PO SCH (09:00)
[2017-06-02] MEDS: PROPRANOLOL HCL 10 MG TABLET PO SCH (09:00)
[2017-06-02] MEDS: ASCORBIC ACID 500 MG TABLET PO SCH (09:00)
[2017-06-02] MEDS: FOLIC ACID 1 MG TABLET PO SCH (09:00)
[2017-06-02] MEDS: MUPIROCIN OINT 2% 22 GM TUBE SCH (09:00)
[2017-06-02] MEDS: LEVOTHYROXINE SODIUM 50 MCG TABLET PO SCH (09:15)
[2017-06-02] MEDS: BOOST PLUS FOOD-CHOCLATE 237 ML BOX PO SCH (09:15)
[2017-06-02] MEDS: HYDROGEL DRESSING 90 GM TUBE TP SCH (10:00)
--- NOTE | 2017-06-02 10:00 | NUR ---
m/s oil spot washer: notes pt refused am care and repositioning when offered. pt remains non-compliant with plan of care. instructed to call for assistance.
--- NOTE | 2017-06-02 10:30 | NUR ---
m/s coremaker helper: notes enrico (acnp) here and made aware re: pt still non-compliant with meds and tx; also refused iv insertion with no new order at this time. for d'c planning back to snf per enrico. awaiting orders. pt still refused am care and assessment. will continue to monitor.
[2017-06-02] MEDS ORDERED: Boost Plus Food-Choclate PO (11:53)
[2017-06-02] MEDS ORDERED: Rivaroxaban PO (11:53)
--- NOTE | 2017-06-02 12:00 | NUR ---
m/s junior network administrator: md visit seen and examined by enrico (acnp) with order to transfer to snf for hospice eval. case management made aware and will make arrangement. cn aware. pt made aware re: d'c back to snf. pt still non-compliant with tx and meds when offered. instructed to call for assistance.
--- NOTE | 2017-06-02 12:15 | NUR ---
m/s meat and poultry inspector: notes [facility] notified, spoke to dl (rn supervisor final) and report given for continuity of care and for hospice evaluation. warren roy (friend, next of kin) notified and made aware re: transfer back to [facility] today.
--- NOTE | 2017-06-02 13:30 | NUR ---
m/s charge authorizer: notes pt refused skin photos to be taken, dressing to sacral and back remains intact. pt unable to sign d'c papers due to cognitive impairment. 2 licensed staff signed all d'c papers and copy will be provided to sn[facility].
--- NOTE | 2017-06-02 14:20 | NUR ---
m/s stitch bonding machine tender helper: discharged discharged back to [facility] via ambulance in stable condition with valuables and d'c papers.
== END 2017-06-02 13:20 | DRG 432 ==
LOC: ER 14:08 → TELE 16:26 → MED 05-29 09:26
PROVIDERS: ADMIT Nurse Practitioner Acute Care; ATTEND Nurse Practitioner Acute Care
PROC: 0W9G3ZZ Drainage of Peritoneal Cavity, Percutaneous Approach (ICD-10-PCS; principal; 2017-05-28)
DX: K70.31 Alcoholic cirrhosis of liver with ascites (principal); N17.0 Acute kidney failure with tubular necrosis; E43 Unspecified severe protein-calorie malnutrition; L89.154 Pressure ulcer of sacral region, stage 4; G93.40 Encephalopathy, unspecified; L89.113 Pressure ulcer of right upper back, stage 3; I82.411 Acute embolism and thrombosis of right femoral vein; I82.431 Acute embolism and thrombosis of right popliteal vein; I82.412 Acute embolism and thrombosis of left femoral vein; E11.65 Type 2 diabetes mellitus with hyperglycemia; F10.21 Alcohol dependence, in remission; Z68.21 Body mass index [BMI] 21.0-21.9, adult; K80.20 Calculus of gallbladder without cholecystitis without obstruction; Z91.19 Patient's noncompliance with other medical treatment and regimen; Z79.84 Long term (current) use of oral hypoglycemic drugs; D63.8 Anemia in other chronic diseases classified elsewhere; N20.0 Calculus of kidney; K44.9 Diaphragmatic hernia without obstruction or gangrene; E02 Subclinical iodine-deficiency hypothyroidism
CPT/HCPCS: 36415; 70450-TC; 71045-TC; 76942-TC; 80048-TC; 80053-TC; 80061-TC; 80076-TC; 81000-TC; 82140-TC; 83690-TC; 83735-TC; 84100-TC; 84439-TC; 84443-TC; 85025-TC; 85730-TC; 87070-TC; 87081-TC; 87086-TC; 89051-TC; 93970-TC; A4606; A6248; A6403; C9113; J1650; J7030; Z7610